=== PATIENT | male | born 1965 | race Caucasian/White ===

== ENCOUNTER 2017-06-05 12:27 | Emergency (ER) | payer SELFPAY ==
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
[2017-06-05 15:37] VITALS: BP 122/80
== END 2017-06-05 15:37 | disposition home or self-care (01) ==
LOC: ED 12:27
DX: S01.81XA Laceration without foreign body of other part of head, initial encounter (principal); V43.52XA Car driver injured in collision with other type car in traffic accident, initial encounter; Y93.89 Activity, other specified; Y92.410 Unspecified street and highway as the place of occurrence of the external cause; R51 Headache; Z88.0 Allergy status to penicillin
CPT/HCPCS: 12011; 70450; 70486; 99282